=== PATIENT | male | born 1975 | race Caucasian/White ===

== ENCOUNTER 2024-04-06 18:52 | Emergency (ER) | payer BC ==
[~2024-04-06] VITALS: Ht 180.3 cm; Wt 118.0 kg
[2024-04-06] MEDS ORDERED: KETOROLAC TROMETHAMINE 30 MG/ML SDV IM ONE (19:50)
[2024-04-06] MEDS ORDERED: ORPHENADRINE CITRATE 30 MG/ML AMP IM ONE (19:50)
[2024-04-06] MEDS ORDERED: predniSONE 20 MG/TAB PO ONE (19:50)
[2024-04-06] MEDS ORDERED: METHOCARBAMOL500 MG PO (20:24)
[2024-04-06] MEDS ORDERED: PREDNISONE10 MG PO (20:24)
[2024-04-06] MEDS ORDERED: NAPROXEN500 MG PO (20:24)
[2024-04-06 20:43] VITALS: BP 128/86
== END 2024-04-06 20:39 | disposition home or self-care (01) | DRG 552 ==
LOC: ED 18:52
DX: M54.41 Lumbago with sciatica, right side (principal)

== ENCOUNTER 2024-07-16 19:07 | Emergency (ER) | payer BC ==
[~2024-07-16] VITALS: Ht 180.3 cm; Wt 120.0 kg
[~2024-07-16 19:07] MED LIST: METHOCARBAMOL500 MG PO; NAPROXEN500 MG PO; PREDNISONE10 MG PO
[2024-07-16] MEDS ORDERED: ONDANSETRON HCl 4 MG/2 ML SDV IV ONE (20:30)
[2024-07-16] MEDS ORDERED: HYDROmorphone HCL 2 MG/AMP IV ONE ×2 (20:30→22:25)
[2024-07-16] MEDS ORDERED: SODIUM CHLORIDE 0.9% 1,000 ML IV ONE (20:30)
[2024-07-16] MEDS ORDERED: KETOROLAC TROMETHAMINE 30 MG/ML SDV IV ONE (22:25)
[2024-07-16] MEDS ORDERED: KETOROLAC TROMETHAMINE 30 MG/ML SDV IM ONE (23:20)
[2024-07-17] MEDS ORDERED: DEXAMETHASONE 2 MG/TAB TAB PO ONE (00:20)
[2024-07-17] MEDS ORDERED: DECADRON4 MG PO (01:58)
[2024-07-17] MEDS ORDERED: FIORICET PO (01:58)
[2024-07-17 02:31] VITALS: BP 123/85
== END 2024-07-17 02:31 | disposition home or self-care (01) | DRG 74 ==
LOC: ED 19:07
DX: M54.12 Radiculopathy, cervical region (principal)
CPT/HCPCS: J1171; J2405